=== PATIENT | male | born 1990 | race Caucasian/White ===

== ENCOUNTER 2016-11-12 19:14 | Emergency (ER) | payer OTHER ==
[~2016-11-12] VITALS: Ht 167.6 cm; Wt 68.0 kg
[2016-11-12 19:20] VITALS: BP 118/74
[2016-11-12] MEDS ORDERED: AUGMENTIN 875875 MG PO (20:28)
== END 2016-11-12 20:47 | disposition home or self-care (01) ==
LOC: ER 19:14
DX: S81.812A Laceration without foreign body, left lower leg, initial encounter (principal); Z98.890 Other specified postprocedural states; W25.XXXA Contact with sharp glass, initial encounter; Y93.89 Activity, other specified; Y92.89 Other specified places as the place of occurrence of the external cause; Y99.8 Other external cause status